=== PATIENT | male | born 1950 | race African-American/Black ===

== ENCOUNTER 2018-02-12 21:35 | Emergency (ER) | payer MEDICARE, MEDICAID ==
[~2018-02-12] VITALS: Ht 188 cm; Wt 79.5 kg
[~2018-02-12 21:35] MED LIST: CLON0.5T12 PO; DOCU-138 PO; FERR142T6 PO; KEPPSOL PO; LAM1 PO; PHEN100C4 PO; Potassium Chloride PO; QUET400T PO; TAMS-11 PO
[2018-02-12 23:00] LABS: CHLORIDE 107 mEq/L (98-107)
[2018-02-12 23:01] LABS: EOSINOPHILS % 1.1 % (0.0-5.0); HEMATOCRIT. 33.1 % (42.0-52.0); MEAN CORPUSCULAR VOLUME 92.9 fL (80.0-94.0); MONOCYTES % 4.1 % (2.0-8.0); NEUTROPHILS % 75.8 % (40.0-76.0); PLATELET 249 x1000/uL (130-400); RED BLOOD CELL COUNT 3.56 mill/uL (4.7-6.1); RED CELL DISTRIBUTION WIDTH 13.8 % (11.6-14.6)
[2018-02-12 23:04] LABS: ETHANOL BLOOD < 10 mg/dL
[2018-02-12 23:14] LABS: CLARITY URINE CLEAR (CLEAR); COLOR URINE YELLOW (YELLOW); KETONES URINE NEGATIVE (NEGATIVE); LEUKOCYTE ESTERASE URINE NEGATIVE (NEGATIVE); NITRITE URINE NEGATIVE (NEGATIVE); OCCULT BLOOD URINE 2+ (NEGATIVE); PROTEIN URINE TRACE (NEGATIVE); SPECIFIC GRAVITY URINE 1.012 (1.005-1.030); UROBILINOGEN URINE 0.2 E.U./dL (0.2-1.0)
[2018-02-12 23:26] LABS: *AMPHETAMINES SCREEN URINE NEGATIVE (NEGATIVE); *BARBITURATES SCREEN URINE NEGATIVE (NEGATIVE); *BENZODIAZEPINES SCREEN URINE PRESUMTIVE POSITIVE (NEGATIVE); *COCAINE SCREEN URINE NEGATIVE (NEGATIVE); CANNABINOID URINE SCREEN NEGATIVE (NEGATIVE); METHADONE URINE SCREEN NEGATIVE (NEGATIVE); OPIATES URINE SCREEN NEGATIVE (NEGATIVE); PHENCYCLIDINE URINE SCREEN NEGATIVE (NEGATIVE)
[2018-02-13 02:46] VITALS: BP 110/75
== END 2018-02-13 02:46 | disposition home or self-care (01) ==
LOC: ER 21:35
DX: S06.0X9A Concussion with loss of consciousness of unspecified duration, initial encounter (principal); F91.1 Conduct disorder, childhood-onset type; E11.9 Type 2 diabetes mellitus without complications; N40.0 Benign prostatic hyperplasia without lower urinary tract symptoms; F20.9 Schizophrenia, unspecified; H54.7 Unspecified visual loss; F79 Unspecified intellectual disabilities; R56.9 Unspecified convulsions; X58.XXXA Exposure to other specified factors, initial encounter; Y93.89 Activity, other specified; Y92.89 Other specified places as the place of occurrence of the external cause
CPT/HCPCS: 36415; 70450; 70486; 80053; 80305; 80307; 80329; 81003; 82962; 85025; 99284; G0482